=== PATIENT | female | born 1940 | race Caucasian/White ===

== ENCOUNTER 2017-12-31 08:45 | Inpatient (IN) | payer OTHER ==
[~2017-12-31] VITALS: Ht 162.6 cm; Wt 53.1 kg
--- NOTE | 2017-12-31 09:03 | ED NEURO DEFICIT/STROKE ---
History of Present Illness General Chief Complaint: General Adult Stated Complaint: PER PT"I THINK IM HAVING A STROKE, SLURRED WORDS" Source: patient, old records Exam Limitations: no limitations Vital Signs & Intake/Output Vital Signs & Intake/Output Vital Signs Date Time Temp Pulse Resp B/P B/P Pulse O2 O2 Flow FiO2 Mean Ox Delivery Rate 01/01 1514 97.8 82 20 184/90 97 Room Air 01/01 0932 98.4 72 18 180/98 01/01 0800 95 Room Air 01/01 0623 98.4 72 18 180/98 96 Room Air 12/31 2212 98.4 86 16 184/96 98 12/31 1852 84 18 194/92 99 Room Air ED Intake and Output 01/01 0000 12/31 1200 Intake Total 200 Output Total Balance 200 Intake, Oral 200 Patient 116 lb 125 lb Weight Weight Bed scale Reported by Patient Measurement Method Allergies Uncoded Allergies: IV DYE (RASH 11/05/11) Reconcile Medications Amlodipine Besylate 5 MG TABLET 1 TAB PO DAILY HEART (Reported) Buspirone HCl 15 MG TABLET 1 TAB PO BID PRN ANXIETY (Reported) Triage Note: PT TO ER C/C SLURRED SPEECH SINCE SUNDAY, WORSENING RIGHT HAND NUMBNESS SINCE SUNDAY. PT STATES RIGHT HAND ALWAYS "A LITTLE TINGLY". PT BP 215/97, TOOK NORVASC PRESCRIBED THIS AM. DENIES HEADACHE OR BLURRED VISION. AOX3 Triage Nurses Notes Reviewed? yes HPI: Pt presents for evaluation of possible stroke. symptoms began on sunday. Past History Travel History Traveled to [place] past 21 day No Medical History Any Pertinent Medical History? see below for history Cardiovascular: hypertension Psychiatric: anxiety Surgical History Surgical History: non-contributory Psychosocial History What is your primary language Azeri Tobacco Use: Never used Family History Hx Contributory? No Review of Systems Review of Systems Constitutional: Reports: no symptoms. EENTM: Reports: no symptoms. Respiratory: Reports: no symptoms. Cardiovascular: Reports: no symptoms. GI: Reports: no symptoms. Genitourinary: Reports: no symptoms. Musculoskeletal: Reports: no symptoms. Skin: Reports: no symptoms. Neurological/Psychological: Reports: see HPI. Hematologic/Endocrine: Reports: no symptoms. Immunologic/Allergic: Reports: no symptoms. All Other Systems: Reviewed and Negative Physical Exam Physical Exam General Appearance: SEE BELOW Cranial Nerves: SEE BELOW Comments: Gen.: Well-nourished, well-developed, no acute respiratory distress. Head: Normocephalic, atraumatic. Eyes: Normal inspection bilaterally Ears: Normal inspection bilaterally Nose: Normal inspection Throat/mouth : Moist mucosa Neck: Supple, full range of motion, no goiter, equal carotid pulses, no carotid bruits Heart: Regular rate and rhythm, no murmurs rubs or gallops Lungs: Clear to auscultation bilaterally with normal air entry Chest: Nontender Back: Normal range of motion Abdomen: Soft, nontender, nondistended, normal bowel sounds Extremities: Normal range of motion grossly, equal radial pulses, no cyanosis clubbing or edema Neurologic: Cranial nerves grossly intact, speech is slurred but otherwise appropriate Skin: warm and dry Psychiatric: Calm, cooperative, no apparent delusions or hallucinations Core Measures CVA/TIA Diagnosis: Yes Sepsis Present: No Sepsis Focused Exam Completed? No Progress Differential Diagnosis: Lopes's Palsy, electrolyte imbalance, hypoglycemia, seizure disorder, stroke Plan of Care: Orders Procedure Date/time Status CBC WITHOUT DIFFERENTIAL 01/02 06 Active BASIC ELECTROLYTES PLUS BUN&CR 01/02 06 Active Heart Healthy Diet 01/01 B Active Change service to 01/01 0757 Active CBC WITHOUT DIFFERENTIAL 01/01 06 Complete BASIC ELECTROLYTES PLUS BUN&CR 01/01 06 Complete Therapeutic Activities 01/01 UNK Complete PT EVAL LOW COMPLEX 20 MIN 01/01 UNK Complete Neuromuscular Re-ed 01/01 UNK Complete Gait Training 01/[address] NECK ANGIOGRAM 01/01 UNK Active Weight 12/31 2020 Active Teach/Educate 12/31 2020 Active Pain Treatment and Response 12/31 2020 Active Nutritional Intake, Monitor 12/31 2020 Active Isolation 12/31 2020 Active Patient Care Conference 12/31 2020 Active Activity/Ambulation 12/31 2020 Complete ECHOCARDIOGRAM 01/01 1916 Active PT Evaluate & Treat 12/31 1910 Active Pathway - chart 12/31 1910 Active House Staff 12/31 1910 Active Patient Data 12/31 191 Active CASE MANAGEMENT CONSULT 12/31 1910 Active Code Status 12/31 1910 Active Patient Data 12/31 1737 Active Misc Message 12/31 172 Active ED Holding Orders 12/31 172 Active Admit to inpatient 12/31 1720 Active Vital Signs 12/31 172 Active Code Status 12/31 1720 Complete Intake & Output 12/31 0945 Active TSH REFLEX 12/31 0916 Complete LIPID PANEL 12/31 0916 Complete GLYCOSYLATED HGB 12/31 0916 Complete NIH Stroke Scale 12/31 0856 Complete Lab Add-on Test 12/31 UNK Active Occupational Tx Eval & Treat 12/31 UNK Active VTE Mechanical Prophylaxis 12/31 UNK Active Vital Signs 12/31 UNK Complete Telemetry/Inspector Eyeglass Frames 12/31 UNK Active NIH Stroke Scale 12/31 UNK Active Activity/Ambulation 12/31 UNK Active Current Medications Sig/Carlita Start time Last Medication Dose Stop Time Status Admin Amlodipine Besylate 5 MG DAILY 01/01 0900 AC 01/01 (Norvasc) 09 Melatonin 5 MG AT BEDTIME 12/31 2100 AC 12/31 (Melatonin) 2050 Acetaminophen 650 MG Q6P PRN 12/31 1914 AC (Tylenol) Alprazolam 0.25 MG TID PRN 12/31 1914 AC (Xanax) 01/07 1914 Atorvastatin Calcium 40 MG 1700 12/31 1914 AC 12/31 (Lipitor) 2050 Clopidogrel Bisulfate 75 MG DAILY 12/31 1914 AC 01/01 (Plavix) 0932 Laboratory Tests 01/01/18 06: Anion Gap 11, Estimated GFR > 60, BUN/Creatinine Ratio 28.3 H, CBC w Diff NO MAN DIFF REQ, RBC 4.48, MCV 93.6, MCH 31.4 H, MCHC 33.5, RDW 14.0, MPV 9.0, Gran % 54.7, Lymphocytes % 23.8, Monocytes % 19.0 H, Eosinophils % 2.1, Basophils % 0.4, Absolute Granulocytes 3.0, Absolute Lymphocytes 1.3, Absolute Monocytes 1.1 H, Absolute Eosinophils 0.1, Absolute Basophils 0 Diagnostic Imaging: Discussed w/RAD: CT Scan. Radiology Impression: PATIENT: SHANITA APODACA PRESENT AGE: 77 PATIENT ACCOUNT NO: [id number] : 42 LOCATION: [facility] ORDERING PHYSICIAN: Nabil Lopes MD SERVICE DATE: 12/31/17 EXAM TYPE: CAT - CT HEAD WO IV CONTRAST EXAMINATION: CT HEAD WITHOUT CONTRAST CLINICAL INFORMATION: Slurred speech. Weakness. COMPARISON: None. TECHNIQUE: Contiguous axial imaging was performed from the skull base to vertex without intravenous contrast. DLP: 626 mGy-cm. FINDINGS: There is no evidence of acute intracranial hemorrhage or territorial infarction. No abnormal mass effect or midline shift is seen. Mota to white matter differentiation is well preserved. No extra-axial fluid collections are identified. No hydrocephalus. No significant volume loss. Patchy periventricular and deep white matter hypoattenuation is consistent with mild small vessel ischemic changes. Likely small chronic infarcts in the left arango radiata frontal lobe and right parietal centrum semiovale. The osseous structures and soft tissues are normal. The mastoid air cells and visualized portions of the paranasal sinuses are well aerated. IMPRESSION: No acute intracranial pathology. Mild small vessel ischemic changes. DICTATED BY: Frank Elkins MD DATE/TIME DICTATED:12/31/171027 ART COORDINATOR: CHEY DATE/TIME TRANSCRIBED:12/31/171027 CONFIDENTIAL, DO NOT COPY WITHOUT APPROPRIATE AUTHORIZATION. <Electronically signed in Other Vendor System> SIGNED BY: Severo VALDEZ,Frank 12/31/17 1036 Initial ED EKG: SEE BELOW Comments: Patient's EKG reveals a sinus rhythm with a rate of 95 and a PVC. She has diffuse ST depressions likely due to LVH with strain pattern. There is no old EKG for comparison. 12/31/2017 9:39:01 AM SHANITA APPEARS COMFORTABLE AT THIS TIME AND HER BLOOD PRESSURE IS IMPROVING SPONTANEOUSLY (she did take her antihypertensive and aspirin this morning). I have asked the refinery operator crude unit to obtain an old EKG from Dr. Louie. 12/31/2017 10:12:19 AM per refinery operator crude unit, no old EKGs available from primary care doctor. 12/31/2017 10:59:10 AM patient's case discussed with Dr. Louie who requests an MRI scan and neurology consultation. 12/31/2017 1:58:58 PM according to radiologist SMALL ARANGO RADIATA INFARCT WITH POSSIBLE BLOOD SUGGESTS REPEAT NON CON CT. 12/31/2017 2:18:56 PM I have notified Rylee of the MRI report and the need for a second CT scan. She agrees. She is clinically stable and offers no complaints currently. Departure Departure Disposition: STILL A PATIENT Condition: Stable Clinical Impression Primary Impression: CVA (cerebral vascular accident) Qualifiers: CVA mechanism: unspecified Qualified Code: I63.9 - Cerebral infarction, unspecified Referrals: Tima Louie MD (PCP/Family) Departure Forms: Customer Survey General Discharge Information Admission Note Spoke With: Tima Louie MD Documentation of Exam: Documentation of any treatments & extenuating circumstances including Concerns Regarding Discharge (functional status, medication knowledge or non-compliance, living conditions, etc.) that warrant an admission rather than observation: Patient clinical presentation is consistent with a CVA. Her MRI scan confirms an acute infarct. Patient is currently taking aspirin therapy she is therefore failed aspirin therapy. I feel she requires hospitalization for an expedited investigation of potential reversible causes of her CVA including cardiac dysrhythmia and carotid artery disease. The patient is suffering from right- sided weakness placing her at high risk of falling and I therefore feel she is not a good candidate for outpatient management. She could potentially return in worse clinical condition. During her hospitalization, I feel the patient should have an echocardiogram and carotid Doppler studies as well as cardiology and neurology consultations. Her medical management should be optimized. Physical therapy consultation to be considered given the patient's excited weakness. I feel she'll require a multiple day hospitalization.
[2017-12-31 09:27] LABS: ABSOLUTE BASOPHIL COUNT 0.1 /CUMM (0.0-0.2); ABSOLUTE EOSINOPHIL COUNT 0 /CUMM (0.0-0.7); ABSOLUTE GRANULOCYTE CT 7.6 /CUMM (1.4-6.5); ABSOLUTE LYMPH COUNT 0.8 /CUMM (1.2-3.4); ABSOLUTE MONOCYTE COUNT 0.8 /CUMM (0.10-0.60); BASOPHIL % 0.8 % (0.0-2.0); EOSINOPHIL % 0.4 % (0-5); GRANULOCYTE % 81.2 % (42.2-75.2); HEMATOCRIT 46.4 % (37-47); MEAN CORPUSCULAR HGB 31.7 PG (27.0-31.0); MEAN CORPUSCULAR HGB CONC 33.8 G/DL (33.0-37.0); MEAN CORPUSCULAR VOLUME 93.6 FL (81.0-99.0); MEAN PLATELET VOLUME 8.6 FL (7.4-10.4); PLATELET COUNT 227 /CUMM (130-400); RBC DISTRIBUTION WIDTH 13.6 % (11.5-14.5); RED BLOOD CELL CT 4.96 /CUMM (4.20-5.40); WHITE BLOOD CELL COUNT 9.4 /CUMM (4.8-10.8)
[2017-12-31 09:37] LABS: PT 11.5 SEC (9.4-12.5); PTT 29 SEC (25-37)
[2017-12-31] MEDS ORDERED: BUSPIRONE HCL15 M1 PO (10:08)
[2017-12-31] MEDS ORDERED: AMLODIPINE BESYL5 M1 PO (10:08)
--- NOTE | 2017-12-31 10:36 | CT SCAN REPORT ---
EXAMINATION: CT HEAD WITHOUT CONTRAST CLINICAL INFORMATION: Slurred speech. Weakness. COMPARISON: None. TECHNIQUE: Contiguous axial imaging was performed from the skull base to vertex without intravenous contrast. DLP: 626 mGy-cm. FINDINGS: There is no evidence of acute intracranial hemorrhage or territorial infarction. No abnormal mass effect or midline shift is seen. Mota to white matter differentiation is well preserved. No extra-axial fluid collections are identified. No hydrocephalus. No significant volume loss. Patchy periventricular and deep white matter hypoattenuation is consistent with mild small vessel ischemic changes. Likely small chronic infarcts in the left arango radiata frontal lobe and right parietal centrum semiovale. The osseous structures and soft tissues are normal. The mastoid air cells and visualized portions of the paranasal sinuses are well aerated. IMPRESSION: No acute intracranial pathology. Mild small vessel ischemic changes.
--- NOTE | 2017-12-31 14:04 | MRI REPORT ---
MR BRAIN WITHOUT CONTRAST CLINICAL INFORMATION: Right-sided weakness and slurred speech. Negative head CT. COMPARISON: Head CT performed earlier the same day. TECHNIQUE: MRI of the brain without contrast was obtained using routine sequences. FINDINGS: There is a small acute infarct within the left arango radiata extending into the posterior left putamen in the left MCA territory. There is susceptibility artifact in near these areas with no correlate on the prior CT study. This may reflect mineralization in these areas no a follow-up noncontrast head CT would be helpful in excluding any developing hemorrhage. There are mild T2 signal changes within the supratentorial white matter and central og, most likely mild chronic microangiopathy. Chronic lacunar infarcts within the cerebellar hemispheres bilaterally. There is no hydrocephalus, extra-axial surface collection, or herniation. The major flow voids at the skull base are preserved. The midline structures are normal. The cerebellar tonsils are normally positioned. The craniocervical junction is normal. Osseous marrow signal intensity is homogenous. The visualized soft tissues are unremarkable. IMPRESSION: - There is a small acute infarct within the left arango radiata extending into the posterior left putamen in the left MCA territory. There is susceptibility artifact in near these areas with no evidence of acute hemorrhage on the prior CT study. The areas of susceptibility artifact may reflect mineralization, however, a follow-up noncontrast head CT would be helpful in excluding any developing hemorrhage. - Mild chronic microangiopathy. Critical results discussed with Dr. Lopes at 2:00 PM on 12/31/2017.
--- NOTE | 2017-12-31 15:36 | CT SCAN REPORT ---
EXAMINATION: CT HEAD WITHOUT CONTRAST CLINICAL INFORMATION: Hemorrhagic CVA. COMPARISON: MRI brain performed from the 1:[address] brain earlier at 10:58 AM today. TECHNIQUE: Contiguous axial imaging was performed from the skull base to vertex without intravenous administration of contrast. DLP: 614. mGy-cm FINDINGS: There is a subtle hypodensity in the left centrum semiovale on image 30, series 2 without any corresponding hemorrhagic conversion or mass effect. No additional areas of hypodensity seen. No acute intra-axial, extra-axial bleed, masses or midline shift seen. The lateral ventricles are symmetrical in size without ventriculomegaly. The hodges to white matter differentiation is preserved. Bone windows reveal no calvarial abnormality. Bilateral paranasal sinuses and mastoid air cells are normal. IMPRESSION: Small lacunar infarction left centrum semiovale with no hemorrhagic conversion seen on the present exam. No acute bleed seen. No new areas of infarction noted.
--- NOTE | 2017-12-31 17:50 | History & Physical ---
[facility]12: General Information and HPI MD Statement: I have seen and personally examined TANVI APODACA and documented this H&P. The patient is a 77 year old F who presented with a patient stated chief complaint of right arm pain and neck fullness. Source of Information: patient Exam Limitations: no limitations History of Present Illness: 77-year-old female with past medical history of hypertension, anxiety came to [facility] with complaints of slurring of speech and right weakness for the past 3 days. According to the patient she was in usual state of health until 3 days ago, following which she started having slurring of speech with deviation of her mouth to the left side. She tried to write, but unable to do. Patient had right arm tingling and numbness more evident on the right thumb and ring finger. She also had right hand weakness. She did not seek medical attention. The next day she continued having slurring of speech and felt weak on the right side. She went to [place] and came back the next day. She also complains of left leg dragging during those episodes. Patient also had floaters with no blurring of vision 2 days prior to this. She denies chest pain, headache, left- sided weakness, altered sensation, palpitation, fall, loss of consciousness, trauma. Patient never had these kind of symptoms in the past. At baseline patient is an anxious. Patient blood pressure is usually around 180 systolic for many years. Patient is on amlodipine 5 mg for the same. Allergies/Medications Allergies: Uncoded Allergies: IV DYE (RASH 11/05/11) Home Med list Amlodipine Besylate 5 MG TABLET 1 TAB PO DAILY HEART (Reported) Buspirone HCl 15 MG TABLET 1 TAB PO BID PRN ANXIETY (Reported) Compliance With Home Meds: GOOD Past History Travel History Traveled to [place] past 21 day No Medical History Cardiovascular: hypertension Respiratory: NONE Gastrointestinal: NONE Renal: NONE Musculoskeletal: NONE Psychiatric: anxiety Endocrine: NONE Surgical History Surgical History: cholecystectomy, hysterectomy Past Family/Social History Family History Relations & Conditions if any grand nother (Stroke). Psychosocial History Where do you live? Home Who Do You Live With? spouse Services at Home: None Primary Language: Nepalese Smoking Status: Never Smoked ETOH Use: occasional use Functional Ability ADLs Independent: dressing, eating, toileting, bathing. Ambulation: independent IADLs Independent: shopping, housework, finances, food prep, telephone, transportation , medication admin. Review of Systems Review of Systems Constitutional: Reports: no symptoms. Cardiovascular: Reports: no symptoms. Respiratory: Reports: no symptoms. GI: Reports: no symptoms. Genitourinary: Reports: no symptoms. Musculoskeletal: Reports: no symptoms. Skin: Reports: no symptoms. Neurological/Psychological: Reports: numbness, tingling. Exam & Diagnostic Data Last 24 Hrs of Vital Signs/I&O Vital Signs Date Time Temp Pulse Resp B/P B/P Pulse O2 O2 Flow FiO2 Mean Ox Delivery Rate 12/31 1641 87 18 204/100 99 Room Air 12/31 1429 98.3 99 20 180/80 96 Room Air 12/31 1300 97 20 180/80 97 Room Air 12/31 1132 98.9 80 20 180/80 95 Room Air 12/31 1007 98.1 89 20 180/80 96 Room Air 12/31 0905 180/96 12/31 0855 98.1 104 18 215/97 96 Room Air Intake & Output 12/31 1600 12/31 0800 12/31 0000 Intake Total Output Total Balance Patient 125 lb Weight Weight Reported by Patient Measurement Method Physical Exam General Appearance Alert, Oriented X3, Cooperative, No Acute Distress HEENT PERRLA, EOMI, Mucous Membr. moist/pink Neck No JVD, No thryomegaly, +2 Carotid Pulse wo Bruit Cardiovascular Regular Rate, Normal S1, Normal S2, No Murmurs Lungs Clear to Auscultation Abdomen Normal Bowel Sounds, Soft, No Tenderness, No Hepatospenomegaly Neurological Normal Speech, Strength at 5/5 X4 Ext, Normal Tone, Sensation Intact, Cranial Nerves 3-12 NL, Reflexes 2+ Extremities No Cyanosis, No Edema, Normal Pulses Last 24 Hrs of Labs/Bobby: Laboratory Tests 12/31/17 0916: Anion Gap 13, Estimated GFR > 60, BUN/Creatinine Ratio 20.0, Glucose 116 H, Hemoglobin A1c Pending, Calcium 9.6, Total Bilirubin 0.6, AST 30, ALT 36, Alkaline Phosphatase 95, Total Protein 7.4, Albumin 4.1, Globulin 3.3, Albumin/ Globulin Ratio 1.2, Triglycerides 117, Cholesterol 199, LDL Cholesterol, Calc 86 , HDL Cholesterol 90 H, Cholesterol/HDL Ratio 2, TSH &T3 &Free T4 Intrp Pending , PT 11.5, INR 1.05, APTT 29, CBC w Diff NO MAN DIFF REQ, RBC 4.96, MCV 93.6, MCH 31.7 H, MCHC 33.8, RDW 13.6, MPV 8.6, Gran % 81.2 H, Lymphocytes % 8.6 L, Monocytes % 9.0, Eosinophils % 0.4, Basophils % 0.8, Absolute Granulocytes 7.6 H, Absolute Lymphocytes 0.8 L, Absolute Monocytes 0.8 H, Absolute Eosinophils 0, Absolute Basophils 0.1 Diagnostic Data EKG Results Left atrial abnormality, left ventricular hypertrophy with PVC Assessment/Plan Assessment: 77-year-old female with past medical history of hypertension, anxiety came to [place] [facility] with complaints of slurring of speech and right weakness for the past 3 days. Vital signs Temperature 98.3, pulse rate 99, blood pressure 180/80, pulse oximeter 96 at room air Admission labs WBC 9.4, platelet 227, hemoglobin 15.7, sodium 141, glucose 116, potassium 3.5, BUN 14 Head MRI There is a small acute infarct within the left arango radiata extending into the posterior left putamen in the left MCA territory. There is susceptibility artifact in near these areas with no evidence of acute hemorrhage on the prior CT study. The areas of susceptibility artifact may reflect mineralization, however, a follow-up noncontrast head CT would be helpful in excluding any developing hemorrhage. Mild chronic microangiopathy. Head CT Small lacunar infarction left centrum semiovale with no hemorrhagic conversion seen on the present exam. No acute bleed seen. No new areas of infarction noted. Assessment and plan 1. Stroke 2. Hypertension 3. Anxiety * Admitted to telemetry. Frequent neuro checks. * Vitals every shift. pt passed swallow eval. * Neurology consult in a.m. US Neck to r/o any stenosis. * Since there is high risk for conversion to hemorrhagic stroke, we will withhold anticoagulation as per neurology. * Patient was on aspirin. Since she failed on aspirin and had a stroke at this time we will give aspirin along with Plavix 75 mg daily. * Continue atorvastatin 40 mg. * Hypertension-amlodipine 5 mg daily. We have to be careful in decreasing her blood pressure not more than 15% in 24 hours. As per neurology her blood pressure needs to be reduced over the months. * Anxiety-on Xanax 0.25 mg 3 times daily * Code-full code * Diet-heart healthy diet Core Measures/Misc (03/25) Acute Coronary Syndrome ACS Diagnosis: No Congestive Heart Failure Congestive Heart Failure Diagnosis No Cerebrovascular Accident CVA/TIA Diagnosis: Yes NIH Stroke Scale: Total 0 Date Last Known Well: 12/27/17 Time Last Known Well: 1030 Symptom Start Date: 12/28/17 Symptom Start Time: 1030 Swallow Evaluation Pass Current/Past Hx AFib/AFlutter No No Anticoagulant d/t Medical Contraindication VTE (View Protocol) VTE Risk Factors Age>40 No Mechanical VTE Prophylaxis d/t Other No VTE Pharm Prophylaxis d/t Other Sepsis (View protocol) Sepsis Present: No If YES complete Sepsis Event Note If YES complete Sepsis Event Note Smith VALDEZ,[facility] 12/31/17 2017: Core Measures/Misc (03/25) Sepsis (View protocol) If YES complete Sepsis Event Note If YES complete Sepsis Event Note Resident Review Statement Resident Statement: examined this patient, discussed with process engineering intern, agreed with process engineering intern, discussed with family, reviewed EMR data (avail), discussed with nursing Other Findings: Tanvi is a 77 year old lady with past medical history significant for hypertension, and excited T who presented to ED with chief complain of right sided weakness and slurred speech since Sunday. Patient has persistent elevated high blood pressure with systolic in 180s, denied any headache, blurry vision. At time of interview patient had slurred speech resolved, normal motor and sensory exam on the bilateral upper and lower extremity. Patient denied any history of fall. Problem list #Acute infarct within the left arango radiata extending into the posterior left putamen in the left MCA territory (symptoms started on Sunday, out side the TPA period). #Hypertension persistently in systolic 180 #Significant anxiety Plan Admit to telemetry floor Vital Q shift NIH scale every [address] Yadav neurologist recommendation for Plavix, statin Echocardiogram Ultrasound carotid Repeat lipid profile TSH with reflex T4, T3 Obtain cardiology recommendation for persistent hypertension and LVH in EKG Continue amlodipine 5 mg for hypertension, patient used to be at 180 systolic, blood pressure shouldn't be dropped quickly Xanax for anxiety 0.25 mg 3 times a day when necessary Follow up neurology recommendation Patient passed bedside swallow eval and had lunch in ED, continue diet heart healthy PT, OT DVT prophylaxis Alps per neurology recommendation, OOB Code full Plan Tima Louie MD 01/01/18 0928: Assessment/Plan As Ranked By This Provider Problem List: 1. Stroke Core Measures/Misc (03/25) Sepsis (View protocol) If YES complete Sepsis Event Note If YES complete Sepsis Event Note
--- NOTE | 2017-12-31 17:57 | Admission Certification ---
Admission Certification Certification Statement - As attending physician, I certify that at the time of - admission, based on clinical presentation, severity of - symptoms, need for further diagnostic testing and - therapeutic interventions, and risk of adverse outcomes - without in-hospital treatment, in my clinical assessment, - this patient requires an acute hospital stay for a minimum - of two nights or longer. I have also considered psychsocial - factors such as support system, advanced age, financial - issues, cognitive issues, and failed out-patient treatments, - past re-admission history, safety of patient, and lack of - compliance as applicable. Specific rationale supporting this admission is: cva AND HYPERTENSION.
--- NOTE | 2017-12-31 18:06 | PN- Att Addend ---
Attending Addendum Attending Brief Note 77 year old female with history of hypertension complaint with medications anxious at times since sunday having difficulty at times expressing her self and some slight weakness right hand decided to come to the ER today evaluation started had CT of the head negative but later had a MRI of the head that showed a small acute infarct within the left arango radiata extending into the posterior left putamen in the left MCA territory. a second CT of the head showed no acute bleeding. patient will be observed have a neurology consult neck US statins etc, and monitor BP too. Laboratory Tests 12/31/17 0916: Anion Gap 13, Estimated GFR > 60, BUN/Creatinine Ratio 20.0, Glucose 116 H, Calcium 9.6, Total Bilirubin 0.6, AST 30, ALT 36, Alkaline Phosphatase 95, Total Protein 7.4, Albumin 4.1, Globulin 3.3, Albumin/Globulin Ratio 1.2, PT 11.5, INR 1.05, APTT 29, CBC w Diff NO MAN DIFF REQ, RBC 4.96, MCV 93.6, MCH 31.7 H, MCHC 33.8, RDW 13.6, MPV 8.6, Gran % 81.2 H, Lymphocytes % 8.6 L, Monocytes % 9.0, Eosinophils % 0.4, Basophils % 0.8, Absolute Granulocytes 7.6 H, Absolute Lymphocytes 0.8 L, Absolute Monocytes 0.8 H, Absolute Eosinophils 0, Absolute Basophils 0.1 Vital Signs Date Time Temp Pulse Resp B/P B/P Pulse O2 O2 Flow FiO2 Mean Ox Delivery Rate 12/31 1641 87 18 204/100 99 Room Air 12/31 1429 98.3 99 20 180/80 96 Room Air 12/31 1300 97 20 180/80 97 Room Air 12/31 1132 98.9 80 20 180/80 95 Room Air 12/31 1007 98.1 89 20 180/ 96 Room Air Intake & Output 12/31 1600 Intake Total Output Total Balance Patient 125 lb Weight Weight Reported by Patient Measurement Method
--- NOTE | 2017-12-31 22:07 | ULTRASOUND REPORT ---
US DUPLEX CAROTID AND VERTEBRAL CLINICAL INFORMATION: Right-sided weakness and slurred speech. COMPARISON: None available. TECHNIQUE: Real-time ultrasound and Doppler techniques (integrating B-mode 2D vascular images, Doppler spectral analysis and color flow Doppler imaging) were utilized to interrogate the extracranial carotid and vertebral arteries bilaterally. The degree of stenosis determined by criteria similar to NASCET. FINDINGS: Right common carotid artery peak systolic velocity is 95 cm/s with maximal end-diastolic velocity of 18 cm/s. Right internal carotid artery peak systolic velocity ranges between 56 and 81 cm/s with maximal end-diastolic velocity of 23 cm/s. Right external carotid artery peak systolic velocity is 91 cm/s. There is antegrade flow within the right vertebral artery. Left common carotid artery peak systolic velocity is 102 cm/s with maximal end-diastolic velocity of 15 cm/s. Left internal carotid artery peak systolic velocity ranges between 91 and 132 cm/s with maximal end-diastolic velocity of 37 cm/s. The 132 cm/s measurement was obtained along a tortuous course of the left ICA and is most likely overestimated. There is antegrade flow within the left vertebral artery. There is mild atherosclerotic plaque at the left carotid bifurcation. IMPRESSION: Distal left internal carotid artery peak systolic velocity is 132 cm/s, likely overestimated given that the vessel is tortuous in this location. In light of the patient's symptoms, a CTA of the neck could be obtained to assess for any significant stenosis. No significant stenosis involving the right internal carotid artery.
[2017-12-31 22:12] VITALS: BP 184/96
[2018-01-01 06:23] VITALS: BP 180/98
--- NOTE | 2018-01-01 06:39 | PN- Housestaff ---
Subjective Follow-up For: Stroke Complaints: no complaints Tele-Events Since Last Visit: Normal sinus rhythm with a heart rate of 80 Subjective: Patient seen and examined at bedside no overnight events. Complains of right hand tightness and weakness. Denies chest pain, palpitation, abdominal pain, nausea, vomiting, fall. Review of Systems Constitutional: Reports: no symptoms. Objective Last 24 Hrs of Vital Signs/I&O Vital Signs Date Time Temp Pulse Resp B/P B/P Pulse O2 O2 Flow FiO2 Mean Ox Delivery Rate 01/01 1514 97.8 82 20 184/90 97 Room Air 01/01 0932 98.4 72 18 180/98 01/01 0800 95 Room Air 01/01 0623 98.4 72 18 180/98 96 Room Air 12/31 2212 98.4 86 16 184/96 98 12/31 1852 84 18 194/92 99 Room Air 12/31 1641 87 18 204/100 99 Room Air Intake & Output 01/01 1600 01/01 0800 01/01 0000 Intake Total 720 200 Output Total Balance 720 200 Intake, Oral 720 200 Patient 116 lb Weight Weight Bed scale Measurement Method Physical Exam General Appearance: Alert, Oriented X3, Cooperative, No Acute Distress Cardiovascular: Regular Rate, Normal S1, Normal S2, No Murmurs Lungs: Normal Air Movement Abdomen: Soft, No Tenderness, No Hepatospenomegaly Neurological: Normal Speech, Normal Tone, Sensation Intact, Cranial Nerves 3-12 NL, left arm 5/5,rt arm 4/5 Extremities: No Cyanosis, No Edema, Normal Pulses Current Medications: Current Medications Sig/Carlita Start time Last Medication Dose Route Stop Time Status Admin Acetaminophen 650 MG Q6P PRN 12/31 1914 AC PO Alprazolam 0.25 MG TID PRN 12/31 1914 AC PO 01/07 1914 Amlodipine Besylate 5 MG DAILY 01/01 0900 AC 01/01 PO 0932 Atorvastatin Calcium 40 MG 1700 12/31 1914 AC 12/31 PO 2050 Clopidogrel Bisulfate 75 MG DAILY 12/31 1914 AC 01/01 PO 0932 Melatonin 5 MG AT BEDTIME 12/31 2100 AC 12/31 PO 2050 Patient Medication 1 ED ONE ONE 01/01 1530 [place] [facility] ED 01/01 1531 Last 24 Hrs of Lab/Bobby Results Last 24 Hrs of Labs/Mics: Laboratory Tests 01/01/18 0605: Anion Gap 11, Estimated GFR > 60, BUN/Creatinine Ratio 28.3 H, CBC w Diff NO MAN DIFF REQ, RBC 4.48, MCV 93.6, MCH 31.4 H, MCHC 33.5, RDW 14.0, MPV 9.0, Gran % 54.7, Lymphocytes % 23.8, Monocytes % 19.0 H, Eosinophils % 2.1, Basophils % 0.4, Absolute Granulocytes 3.0, Absolute Lymphocytes 1.3, Absolute Monocytes 1.1 H, Absolute Eosinophils 0.1, Absolute Basophils 0 Assessment/Plan Assessment: 77-year-old female with past medical history of hypertension, anxiety came to [place] [facility] with complaints of slurring of speech and right weakness for the past 3 days. Assessment and plan 1. Stroke 2. Hypertension 3. Anxiety * Continue neuro check. Awaiting neurology consult. * Patient had ultrasound of the neck which suggested increased fluid in the left carotid artery. We will do CTA neck. * Continue aspirin, Plavix, atorvastatin. * Hypertension patient has chronic systolic hypertension. We will continue amlodipine 5 mg.We have to be careful in decreasing her blood pressure not more than 15% in 24 hours. As per neurology her blood pressure needs to be reduced over the months. * Anxiety-on Xanax 0.25 mg 3 times daily * Code-full code * Diet-heart healthy diet Problem List: 1. Stroke Pain Ratin Pain Location: none Pain Goal: Remain pain free Pain Plan: tylenol Tomorrow's Labs & Rationales: cbc,bep
[2018-01-01 07:44] LABS: ABSOLUTE BASOPHIL COUNT 0 /CUMM (0.0-0.2); ABSOLUTE EOSINOPHIL COUNT 0.1 /CUMM (0.0-0.7); ABSOLUTE LYMPH COUNT 1.3 /CUMM (1.2-3.4); ABSOLUTE MONOCYTE COUNT 1.1 /CUMM (0.10-0.60); BASOPHIL % 0.4 % (0.0-2.0); EOSINOPHIL % 2.1 % (0-5); GRANULOCYTE % 54.7 % (42.2-75.2); HEMATOCRIT 41.9 % (37-47); MEAN CORPUSCULAR HGB 31.4 PG (27.0-31.0); MEAN CORPUSCULAR HGB CONC 33.5 G/DL (33.0-37.0); MEAN CORPUSCULAR VOLUME 93.6 FL (81.0-99.0); PLATELET COUNT 220 /CUMM (130-400); RED BLOOD CELL CT 4.48 /CUMM (4.20-5.40); WHITE BLOOD CELL COUNT 5.6 /CUMM (4.8-10.8)
--- NOTE | 2018-01-01 10:00 | PN- Att Addend ---
Attending Addendum Attending Brief Note Patient sitting in the chair, at the bed site. was seen by PT and OT neurologist will be in to check patient patient on Plavix, BP still a little up but better than yesterday, no new changes on physical. continue observation today if stable home in AM. 24 TOTALS 01/01 0000 12/31 0000 Intake Total 200 Output Total Balance 200 Intake, Oral 200 Patient 116 lb Weight Weight Bed scale Measurement Method Current Medications Sig/Carlita Start time Last Medication Dose Route Stop Time Status Admin Acetaminophen 650 MG Q6P PRN 12/31 1914 AC PO Alprazolam 0.25 MG TID PRN 12/31 1914 AC PO 01/07 1914 Amlodipine Besylate 5 MG DAILY 01/01 09 AC 01/01 PO 09 Atorvastatin Calcium 40 MG 1700 12/31 1914 AC 12/31 PO 2050 Clopidogrel Bisulfate 75 MG DAILY 12/31 1914 AC 01/01 PO 0932 Melatonin 5 MG AT BEDTIME 12/31 2100 AC 12/31 PO 2050 Laboratory Tests 01/01/18 06: Anion Gap 11, Estimated GFR > 60, BUN/Creatinine Ratio 28.3 H, CBC w Diff NO MAN DIFF REQ, RBC 4.48, MCV 93.6, MCH 31.4 H, MCHC 33.5, RDW 14.0, MPV 9.0, Gran % 54.7, Lymphocytes % 23.8, Monocytes % 19.0 H, Eosinophils % 2.1, Basophils % 0.4, Absolute Granulocytes 3.0, Absolute Lymphocytes 1.3, Absolute Monocytes 1.1 H, Absolute Eosinophils 0.1, Absolute Basophils 0 12/31/17 09: Anion Gap 13, Estimated GFR > 60, BUN/Creatinine Ratio 20.0, Glucose 116 H, Hemoglobin A1c 5.1, Calcium 9.6, Total Bilirubin 0.6, AST 30, ALT 36, Alkaline Phosphatase 95, Total Protein 7.4, Albumin 4.1, Globulin 3.3, Albumin/Globulin Ratio 1.2, Triglycerides 117, Cholesterol 199, LDL Cholesterol, Calc 86, HDL Cholesterol 90 H, Cholesterol/HDL Ratio 2, TSH &T3 &Free T4 Intrp 0.897, PT 11.5, INR 1.05, APTT 29, CBC w Diff NO MAN DIFF REQ, RBC 4.96, MCV 93.6, MCH 31.7 H, MCHC 33.8, RDW 13.6, MPV 8.6, Gran % 81.2 H, Lymphocytes % 8.6 L, Monocytes % 9.0, Eosinophils % 0.4, Basophils % 0.8, Absolute Granulocytes 7.6 H, Absolute Lymphocytes 0.8 L, Absolute Monocytes 0.8 H, Absolute Eosinophils 0, Absolute Basophils 0.1 Vital Signs Date Time Temp Pulse Resp B/P B/P Pulse O2 O2 Flow FiO2 Mean Ox Delivery Rate 01/01 0932 98.4 72 18 180/98 01/01 0623 98.4 72 18 180/98 96 Room Air 12/31 2212 98.4 86 16 184/96 98 12/31 1852 84 18 194/92 99 Room Air 12/31 1641 87 18 204/100 99 Room Air 12/31 1429 98.3 99 20 180/80 96 Room Air 12/31 1300 97 20 180/80 97 Room Air 12/31 1132 98.9 80 20 180/80 95 Room Air 12/31 1007 98.1 89 20 180/80 96 Room Air
[2018-01-01 15:14] VITALS: BP 184/90
--- NOTE | 2018-01-01 18:20 | Event Note ---
Event Note Event Note: S patient is scheduled for CTA and has a IV contrast allergy B patient is a 77-year-old female who is being currently evaluated for stroke after presenting tingling and numbness in right hand along with slurring of speech 3 days ago. She underwent an MRI which was positive for small acute infarct within the left arango radiata extending into the posterior left putamen in the left MCA territory. No hemorrhagic conversion was seen on CT. carotid ultrasound was positive for Distal left internal carotid artery peak systolic velocity being 132 cm/s, likely overestimated given that the vessel is tortuous in this location. Hence correlation with CTA was suggested AR I went in and evaluated the patient. Patient told me that 20 years ago she had IV contrast (gadolinium or iodine) she does not remember whether CT scan or MRI. She got hives all over her body and had extensive itching. There was no shortness of breath or trouble breathing at that episode. Patient did not seek medical attention at that point. There is no shellfish allergy Initially patient was resistant to getting the CTA done. However patient was explained the importance of the test and management as per test results. Her family was also at the bedside. I have personally explained the patient's risk of contrast allergy involved including trouble breathing and anaphylaxis. I also explained our strategies including steroids and antihistamines to prevent the reaction of hives. Risks versus benefits patient has agreed to proceed with the CTA after discussion with her and children. The attending Dr. Louie was contacted over the phone who was advised to proceed with premedication and go ahead with the CTA -50 mg IV Benadryl -40 mg IV methylprednisone These interventions have been ordered. EpiPen has also been ordered. Patient will be premedicated 1 hour before the scan. The scan is planned at 8 PM. -Patient will require close monitoring -We will sign out to night team -Patient should go down for the scan with the EpiPen
--- NOTE | 2018-01-01 18:25 | Cons- Neurology ---
General Information and HPI Consulting Request Date of Consult: 01/01/18 Requested By: Tima Louie MD Reason for Consult: Stroke Source of Information: patient Exam Limitations: no limitations History of Present Illness: 77-year-old right-handed woman who states that night into Sunday morning () She developed right-sided weakness and slurred speech. Nonetheless, she wants to attend a relative's graduation in [place]. She states that her drove there and back. When she returned she sought medical attention and was admitted. Speech remains slurred. She denies swallowing difficulties. She has difficulty using her right hand for fine motor tasks such as writing. She states she has been ambulating without difficulties and without an assistive device. She denies headache dizziness or visual changes. She reports a history of hypertension since her 20s. She admits to episodic antihypertensive medication nonadherence. There is a history of stroke in her maternal grandmother. She is a lifelong nonsmoker. Allergies/Medications Allergies: Uncoded Allergies: IV DYE (Mild, HIVES 01/01/18) PATIENT DOES NOT REMEMBER WHICH CONTRAST CAUSE HER REACTION Home Med List: Amlodipine Besylate 5 MG TABLET 1 TAB PO DAILY HEART (Reported) Buspirone HCl 15 MG TABLET 1 TAB PO BID PRN ANXIETY (Reported) Current Medications: Current Medications Sig/Carlita Start time Last Medication Dose Route Stop Time Status Admin Acetaminophen 650 MG Q6P PRN 12/31 1914 AC PO Alprazolam 0.25 MG TID PRN 12/31 1914 AC PO 01/07 1914 Amlodipine Besylate 5 MG DAILY 01/01 0900 AC 01/01 PO 0932 Atorvastatin Calcium 40 MG 1700 12/31 191 AC 12/31 PO 2050 Clopidogrel Bisulfate 75 MG DAILY 12/31 191 AC 01/01 PO 0932 Melatonin 5 MG AT BEDTIME 12/31 2100 AC 12/31 PO 2050 Patient Medication 1 ED ONE ONE 01/01 1530 [facility] ED 01/01 1531 Review of Systems Review of Systems: REVIEW OF SYSTEMS: (-) = negative / normal blank = not discussed Neurologic: see HPI Eyes: (-) ENT: (-) Constitutional: (-) CV: (-) Respiratory: (-) /Renal: (-) Musculoskeletal: (-) Skin: (-) Psychiatric: (-) Heme: (-) GI: (-) Allergy/Immune: (-) Endocrine: (-) Other: (-) Past History Travel History Traveled to [place] past 21 day No Medical History Blood Transfusion Hx: No Cardiovascular: hypertension Respiratory: NONE Gastrointestinal: NONE Renal: NONE Musculoskeletal: NONE Psychiatric: anxiety Endocrine: NONE Surgical History Surgical History: non-contributory Family History Relations & Conditions If Any: grand nother (Stroke). Psychosocial History Where Do You Live? Home Who Do You Live With? spouse Services at Home: None Primary Language: Albanian Smoking Status: Never Smoked ETOH Use: occasional use Functional Ability ADLs Independent: dressing, eating, toileting, bathing. Ambulation: independent IADLs Independent: shopping, housework, finances, food prep, telephone, transportation , medication admin. Exam & Diagnostic Data Vital Signs and I&O Vital Signs Date Time Temp Pulse Resp B/P B/P Pulse O2 O2 Flow FiO2 Mean Ox Delivery Rate 01/01 1630 Room Air 01/01 1514 97.8 82 20 184/90 97 Room Air 01/01 0932 98.4 72 18 180/98 01/01 0800 95 Room Air 01/01 0623 98.4 72 18 180/98 96 Room Air 12/31 2212 98.4 86 16 184/96 98 12/31 1852 84 18 194/92 99 Room Air Intake & Output 01/01 1600 01/01 0800 01/01 0000 Intake Total 720 200 Output Total Balance 720 200 Intake, Oral 720 200 Patient 116 lb Weight Weight Bed scale Measurement Method Physical Exam: PHYSICAL EXAMINATION: nl = normal NT or blank = not tested GENERAL Appearance: nl Head: nl Eyes: nl ENT: nl Neck: nl Carotids: nl Lungs: nl Heart: nl Extremities: nl NEUROLOGIC MENTAL STATUS Level of consciousness: nl Orientation: nl Attention / Concentration: nl Memory: nl Fund of Knowledge: nl Speech / Language: Fluent, with intact comprehension and mild to moderate dysarthria NEUROLOGIC CRANIAL NERVES I: Olfaction: NT II: Optic nerves: nl Visual gallego: nl III: Pupils: nl Levator palpebrae: nl III, IV, : Ocular alignment: nl Extraocular motility: nl Pursuits/ saccades: nl V: Facial sensation: nl Masseter/Pterygoids: nl VII: Facial Motor: Mild right lower facial weakness VIII: Hearing (finger rub): nl IX, X: Uvula and palate: nl XI: SCM, Upper trap.: nl XII: Tongue: nl MOTOR / NEUROMUSCULAR Bulk: nl Tone: nl Strength: nl lower extremities and left upper extremity; right pronator drift and positive satellite sign Rapid alternating movements: Impaired right hand Fine motor movements: Impaired right hand Abnormal / involuntary movements: none CEREBELLAR / COORDINATION: intact SENSATION: intact to light touch DTR's symmetrically hypoactive PLANTARS: flexor GAIT: Not tested Last 48 Hours of Lab Results: Laboratory Tests 01/01 06 Chemistry Sodium (137 - 145 mmol/L) 143 Potassium (3.5 - 5.1 mmol/L) 3.6 Chloride (98 - 107 mmol/L) 110 H Carbon Dioxide (22 - 30 mmol/L) 22 Anion Gap (5 - 16) 11 BUN (7 - 17 mg/dL) 17 Creatinine (0.5 - 1.0 mg/dL) 0.6 Estimated GFR (>60 ml/min) > 60 BUN/Creatinine Ratio (7 - 25 %) 28.3 H Hematology CBC w Diff NO MAN DIFF REQ WBC (4.8 - 10.8 /CUMM) 5.6 RBC (4.20 - 5.40 /CUMM) 4.48 Hgb (12.0 - 16.0 G/DL) 14.1 Hct (37 - 47 %) 41.9 MCV (81.0 - 99.0 FL) 93.6 MCH (27.0 - 31.0 PG) 31.4 H MCHC (33.0 - 37.0 G/DL) 33.5 RDW (11.5 - 14.5 %) 14.0 Plt Count (130 - 400 /CUMM) 220 MPV (7.4 - 10.4 FL) 9.0 Gran % (42.2 - 75.2 %) 54.7 Lymphocytes % (20.5 - 51.1 %) 23.8 Monocytes % (1.7 - 9.3 %) 19.0 H Eosinophils % (0 - 5 %) 2.1 Basophils % (0.0 - 2.0 %) 0.4 Absolute Granulocytes (1.4 - 6.5 /CUMM) 3.0 Absolute Lymphocytes (1.2 - 3.4 /CUMM) 1.3 Absolute Monocytes (0.10 - 0.60 /CUMM) 1.1 H Absolute Eosinophils (0.0 - 0.7 /CUMM) 0.1 Absolute Basophils (0.0 - 0.2 /CUMM) 0 12/31 0916 Chemistry Sodium (137 - 145 mmol/L) 141 Potassium (3.5 - 5.1 mmol/L) 3.5 Chloride (98 - 107 mmol/L) 106 Carbon Dioxide (22 - 30 mmol/L) 23 Anion Gap (5 - 16) 13 BUN (7 - 17 mg/dL) 14 Creatinine (0.5 - 1.0 mg/dL) 0.7 Estimated GFR (>60 ml/min) > 60 BUN/Creatinine Ratio (7 - 25 %) 20.0 Glucose (65 - 99 mg/dL) 116 H Hemoglobin A1c (4.2 - 5.8 %) 5.1 Calcium (8.4 - 10.2 mg/dL) 9.6 Total Bilirubin (0.2 - 1.3 mg/dL) 0.6 AST (14 - 36 U/L) 30 ALT (9 - 52 U/L) 36 Alkaline Phosphatase (<127 U/L) 95 Total Protein (6.3 - 8.2 g/dL) 7.4 Albumin (3.5 - 5.0 g/dL) 4.1 Globulin (1.9 - 4.2 gm/dL) 3.3 Albumin/Globulin Ratio (1.1 - 2.2 %) 1.2 Triglycerides (<150 mg/dL) 117 Cholesterol (<200 MG/DL) 199 LDL Cholesterol, Calc (65 - 129 mg/dL) 86 HDL Cholesterol (40 - 60 mg/dL) 90 H Cholesterol/HDL Ratio (0.00 - 4.23 %) 2 TSH &T3 &Free T4 Intrp (0.270 - 4.20 uIU/mL) 0.897 Coagulation PT (9.4 - 12.5 SEC) 11.5 INR (0.90 - 1.19) 1.05 APTT (25 - 37 SEC) 29 Hematology CBC w Diff NO MAN DIFF REQ WBC (4.8 - 10.8 /CUMM) 9.4 RBC (4.20 - 5.40 /CUMM) 4.96 Hgb (12.0 - 16.0 G/DL) 15.7 Hct (37 - 47 %) 46.4 MCV (81.0 - 99.0 FL) 93.6 MCH (27.0 - 31.0 PG) 31.7 H MCHC (33.0 - 37.0 G/DL) 33.8 RDW (11.5 - 14.5 %) 13.6 Plt Count (130 - 400 /CUMM) 227 MPV (7.4 - 10.4 FL) 8.6 Gran % (42.2 - 75.2 %) 81.2 H Lymphocytes % (20.5 - 51.1 %) 8.6 L Monocytes % (1.7 - 9.3 %) 9.0 Eosinophils % (0 - 5 %) 0.4 Basophils % (0.0 - 2.0 %) 0.8 Absolute Granulocytes (1.4 - 6.5 /CUMM) 7.6 H Absolute Lymphocytes (1.2 - 3.4 /CUMM) 0.8 L Absolute Monocytes (0.10 - 0.60 /CUMM) 0.8 H Absolute Eosinophils (0.0 - 0.7 /CUMM) 0 Absolute Basophils (0.0 - 0.2 /CUMM) 0.1 Imaging/Other Studies: PATIENT: SHANITA APODACA PRESENT AGE: 77 PATIENT ACCOUNT NO: [id number] : 42 LOCATION: [facility] ORDERING PHYSICIAN: Nabil Lopes MD SERVICE DATE: 12/31/17 EXAM TYPE: MRI - MRI-HEAD W/O CAROLYN MR BRAIN WITHOUT CONTRAST CLINICAL INFORMATION: Right-sided weakness and slurred speech. Negative head CT. COMPARISON: Head CT performed earlier the same day. TECHNIQUE: MRI of the brain without contrast was obtained using routine sequences. FINDINGS: There is a small acute infarct within the left arango radiata extending into the posterior left putamen in the left MCA territory. There is susceptibility artifact in near these areas with no correlate on the prior CT study. This may reflect mineralization in these areas no a follow-up noncontrast head CT would be helpful in excluding any developing hemorrhage. There are mild T2 signal changes within the supratentorial white matter and central og, most likely mild chronic microangiopathy. Chronic lacunar infarcts within the cerebellar hemispheres bilaterally. There is no hydrocephalus, extra-axial surface collection, or herniation. The major flow voids at the skull base are preserved. The midline structures are normal. The cerebellar tonsils are normally positioned. The craniocervical junction is normal. Osseous marrow signal intensity is homogenous. The visualized soft tissues are unremarkable. IMPRESSION: - There is a small acute infarct within the left arango radiata extending into the posterior left putamen in the left MCA territory. There is susceptibility artifact in near these areas with no evidence of acute hemorrhage on the prior CT study. The areas of susceptibility artifact may reflect mineralization, however, a follow-up noncontrast head CT would be helpful in excluding any developing hemorrhage. - Mild chronic microangiopathy. Critical results discussed with Dr. Lopes at 2:00 PM on 12/31/2017. DICTATED BY: Nabil Eagle MD DATE/TIME DICTATED:12/31/171349 CLINICAL ASSOCIATE:CHEY DATE/TIME TRANSCRIBED:12/31/171349 CONFIDENTIAL, DO NOT COPY WITHOUT APPROPRIATE AUTHORIZATION. <Electronically signed in Other Vendor System> SIGNED BY: Nabil Eagle MD 12/31/17 8804 IMPRESSION: Distal left internal carotid artery peak systolic velocity is 132 cm/s, likely overestimated given that the vessel is tortuous in this location. In light of the patient's symptoms, a CTA of the neck could be obtained to assess for any significant stenosis. No significant stenosis involving the right internal carotid artery. DICTATED BY: Nabil Eagle MD DATE/TIME DICTATED:12/31/172157 Assessment/Plan Assessment: Recent left arango radiata ischemic stroke with dysarthria and impaired right hand dexterity/strength. Admits to intermittent antihypertensive medication nonadherence. Question of left ICA stenosis versus tortuosity. Recommendations: Await CTA results Obtain an echocardiogram Continue antiplatelet and statin therapy Blood pressure control Stroke education Outpatient Speech therapy Outpatient Occupational therapy Consult Acknowledgment - Thank you for your consult request.
--- NOTE | 2018-01-01 20:45 | CT SCAN REPORT ---
CT ANGIOGRAM NECK WITH CONTRAST CT ANGIOGRAM BRAIN WITH CONTRAST CLINICAL INFORMATION: Evaluate possible atherosclerotic stroke. Slurred speech with right-sided tingling and numbness. COMPARISON: Brain MRI 12/31/2017 and carotid ultrasound from the same day. TECHNIQUE: Test bolus sequences followed by intravenous administration 95 mL of Optiray 320. Helical imaging was performed in the axial plane from the thoracic inlet to the skull vertex. Delayed postcontrast imaging of the head was also performed. The data was processed at the sand technologist workstation for generation of MIP sequences. Angled MIPs and volume rendered reformatted images were also generated at an offline 3D workstation. Stenoses are assessed in accordance with NASCET criteria unless otherwise indicated. FINDINGS: BRAIN: Small acute infarct extending from the left carotid artery on into the posterior left putamen and the left MCA territory is again noted. Mild background chronic microangiopathy. There is no intracranial hemorrhage, hydrocephalus, extra-axial surface collection, midline shift, or other herniation pattern. Mota to white matter differentiation is diffusely maintained without evidence of an evolved acute territorial infarct. The basilar cisterns are preserved. No significant soft tissue abnormality. No acute osseous abnormality. The paranasal sinuses and the mastoid air cells are well-aerated. CERVICAL SOFT TISSUES AND LUNG APICES: Biapical pleural parenchymal scarring. Enlarged multinodular thyroid gland. Asymmetric heterogeneous enhancement involving the left palatine tonsil for which direct visual inspection is recommended to exclude a tonsillar mass lesion. There is an 8 mm calculus along the upper medial margin of the left subinsular gland which exhibits severe fatty atrophy. Multilevel cervical spondylosis. Rightward deviation of the nasal septum with a rightward directed nasal septal spur. NECK CTA: There is a classic 3 vessel configuration of the aortic arch. Proximal arch vessels are non-stenotic. The vertebral arteries are codominant. No significant ostial stenosis is visualized on either side. Both vertebral arteries are widely patent throughout their extracranial cervical course. Both common and internal carotid arteries are normal in course and caliber. No significant stenosis involving the internal carotid arteries. Previous mildly elevated velocities within the distal left internal carotid artery were presumably related to vessel tortuosity. BRAIN CTA: There is a moderate stenosis involving the left M1 MCA segment. No additional significant arterial stenoses and no acute arterial occlusions within the head or neck. A small 2 mm shallow aneurysm projects inferiorly from the left paraclinoid ICA segment. Small infundibulum at the hypoplastic left P-comm origin. Timing of the contrast bolus allows assessment of the major dural venous sinuses, which all opacify normally. IMPRESSION: - Small evolving acute infarct within the left arango radiata extending to the left putamen in the left MCA territory. No hemorrhagic transformation. - There is a moderate stenosis involving the left M1 MCA segment. No additional significant arterial stenoses and no acute arterial occlusions within the head or neck. - A small 2 mm shallow aneurysm projects inferiorly from the left paraclinoid ICA segment. - Asymmetric heterogeneous enhancement involving the left palatine tonsil for which direct visual inspection is recommended to exclude a tonsillar mass lesion. - There is an 8 mm calculus along the upper medial margin of the left subinsular gland which exhibits severe fatty atrophy. - Enlarged multinodular thyroid gland.
[2018-01-01 21:47] VITALS: BP 162/90
[2018-01-02 06:35] VITALS: BP 140/90
--- NOTE | 2018-01-02 07:04 | PN- Housestaff ---
Subjective Follow-up For: Stroke Complaints: no complaints Tele-Events Since Last Visit: Normal sinus rhythm with a heart rate of 80s Subjective: Patient seen and examined at bedside. No overnight events. Patient denies weakness, dizziness, chest pain, nausea, vomiting, abdominal pain. Review of Systems Constitutional: Reports: no symptoms. Objective Last 24 Hrs of Vital Signs/I&O Vital Signs Date Time Temp Pulse Resp B/P B/P Pulse O2 O2 Flow FiO2 Mean Ox Delivery Rate 01/02 1058 182/90 01/02 0635 97.6 78 18 140/90 96 Room Air 01/01 2147 97.9 76 20 162/90 94 Room Air 01/01 1630 Room Air 01/01 1514 97.8 82 20 184/90 97 Room Air Intake & Output 01/02 1600 01/02 0800 01/02 0000 Intake Total 300 400 350 Output Total Balance 300 400 350 Intake, Oral 300 400 350 Patient 117 lb Weight Weight Bed scale Measurement Method Physical Exam General Appearance: Alert, Oriented X3, Cooperative, No Acute Distress Cardiovascular: Normal S1, Normal S2, No Murmurs Lungs: Clear to Auscultation Abdomen: Soft, No Tenderness, No Hepatospenomegaly Neurological: Normal Speech, Strength at 5/5 X4 Ext, Normal Tone, Sensation Intact Extremities: No Cyanosis, No Edema, Normal Pulses Current Medications: Current Medications Sig/Carlita Start time Last Medication Dose Route Stop Time Status Admin Acetaminophen 650 MG Q6P PRN 12/31 1914 AC PO Alprazolam 0.25 MG TID PRN 12/31 1914 AC PO 01/07 1914 Amlodipine Besylate 5 MG DAILY 01/01 0900 AC 01/02 PO 1058 Atorvastatin Calcium 40 MG 1700 12/31 1914 AC 01/01 PO 202 Clopidogrel Bisulfate 75 MG DAILY 12/31 1914 AC 01/02 PO 0851 Diphenhydramine HCl 50 MG ONCE ONE 01/01 1915 DC 01/01 IV 01/01 Epinephrine 0.3 MG ONCE PRN 01/01 1945 AC IM Melatonin 5 MG AT BEDTIME 12/31 2100 AC 12/31 PO 205 Methylprednisolone 40 MG ONCE ONE 01/01 1915 DC 01/01 IV 01/01 Patient Medication 1 ED ONE ONE 01/01 1530 VT Teaching ED 01/01 1531 Last 24 Hrs of Lab/Bobby Results Last 24 Hrs of Labs/Mics: Laboratory Tests 01/02/18 0619: Anion Gap 10, Estimated GFR > 60, BUN/Creatinine Ratio 30.0 H, CBC w Diff NO MAN DIFF REQ, RBC 4.83, MCV 93.6, MCH 31.4 H, MCHC 33.5, RDW 13.6, MPV 9.5, Gran % 93.5 H, Lymphocytes % 5.4 L, Monocytes % 1.1 L, Eosinophils % 0, Basophils % 0, Absolute Granulocytes 9.3 H, Absolute Lymphocytes 0.5 L, Absolute Monocytes 0.1, Absolute Eosinophils 0, Absolute Basophils 0 Assessment/Plan Assessment: 77-year-old female with past medical history of hypertension, anxiety came to [facility] with complaints of slurring of speech and right weakness for the past 3 days. Assessment and plan 1. Stroke 2. Hypertension 3. Anxiety * Overall patient feels much better. She had CTA neck and head which showed moderate stenosis of left MCA with questionable palatine tonsil mass. Patient will follow-up with ENT surgeon, neurologist, primary care physician as outpatient. Problem List: 1. Stroke Pain Ratin Pain Location: none Pain Goal: Remain pain free Pain Plan: tylenol Tomorrow's Labs & Rationales: cbc,bep
[2018-01-02] MEDS ORDERED: PLAVIX75 M1 PO ×2 (07:57→10:54)
[2018-01-02] MEDS ORDERED: ATORVASTATIN CA40 M1 PO ×2 (07:57→10:54)
--- NOTE | 2018-01-02 08:05 | Patient Discharge Instructions ---
Discharge Instructions General Discharge Information You were seen/treated for: STROKE Watch for these problems: DIZZINESS, FALL, LOSS OF CONSCIOUSNESS, WEAKNESS GO TO NEAREST EMERGENCY ROOM Special Instructions: PLEASE FOLLOW UP WITH YOUR PRIMARY CARE PROVIDER/ENT/neurology/ENDOCRINOLOGY WITHIN 1-2 WEEKS OF DISCHARGE Diet Continue normal diet: Yes Activity Full Activity/No Limits: No Activity Self Limited: Yes Acute Coronary Syndrome Inclusion Criteria At DC or during hospital stay patient has or had the following: ACS DIAGNOSIS No Discharge Core Measures Meds if any: Prescribed or Continued at Discharge DEE/ARB if EF <40% No Meds if any: NOT Prescribed or Continued at Discharge Congestive Heart Failure Inclusion Criteria At DC or during hospital stay patient has or had the following: CHF DIAGNOSIS No Discharge Core Measures Meds if any: Prescribed or Continued at Discharge Meds if any: NOT Prescribed or Continued at Discharge Cerebrovascular accident Inclusion Criteria At DC or during hospital stay patient has or had the following: CVA/TIA Diagnosis Yes Discharge Core Measures Meds if any: Prescribed or Continued at Discharge Antithrombotic No Statin (required if LDL =>70) Yes Anticoagulant No Meds if any: NOT Prescribed or Continued at Discharge Venous thromboembolism Inclusion Criteria VTE Diagnosis No VTE Type NONE VTE Confirmed by (Test) NONE Discharge Core Measures - Per Current guidelines, there needs to be overlap - treatment for the first 5 days of Warfarin therapy. - If discharged on Warfarin prior to 5 days of - overlap therapy, the patient will need to be - assessed for post discharge needs including - *Post discharge parental anticoagulation - *Warfarin and/or parental anticoagulation education - *Follow up date to check INR post discharge At least 5 days overlap therapy as Inpatient No Meds if any: Prescribed or Continued at Discharge Note: Overlap Therapy is Warfarin and Anticoagulant Meds if any: NOT Prescribed or Continued at Discharge
[2018-01-02 08:09] LABS: ABSOLUTE BASOPHIL COUNT 0 /CUMM (0.0-0.2); ABSOLUTE EOSINOPHIL COUNT 0 /CUMM (0.0-0.7); ABSOLUTE GRANULOCYTE CT 9.3 /CUMM (1.4-6.5); ABSOLUTE LYMPH COUNT 0.5 /CUMM (1.2-3.4); ABSOLUTE MONOCYTE COUNT 0.1 /CUMM (0.10-0.60); BASOPHIL % 0 % (0.0-2.0); EOSINOPHIL % 0 % (0-5); MEAN CORPUSCULAR HGB CONC 33.5 G/DL (33.0-37.0)
[2018-01-02 08:41] LABS: HEMATOCRIT 45.2 % (37-47); MEAN CORPUSCULAR HGB 31.4 PG (27.0-31.0); MEAN CORPUSCULAR VOLUME 93.6 FL (81.0-99.0); MEAN PLATELET VOLUME 9.5 FL (7.4-10.4); PLATELET COUNT 240 /CUMM (130-400); RBC DISTRIBUTION WIDTH 13.6 % (11.5-14.5); RED BLOOD CELL CT 4.83 /CUMM (4.20-5.40)
[2018-01-02 09:09] LABS: GRANULOCYTE % 93.5 % (42.2-75.2)
--- NOTE | 2018-01-02 09:30 | ECHOCARDIOGRAM REPORT ---
SHANITA APODACA Age: 77 : 1940 Gender: F Exam Date: 01/01/2018 16:36 Exam Location: 1 [address] Ht (in): 64 Wt (lb): 125 BSA: 1.60 BP: 180 / 98 Ordering Physician: Garry Mtz MD Referring Physician: Garry Mtz MD Technologist: Dorota Ramires [facility] Room Number: [id number] Indications: TIA Rhythm: Sinus Technical Quality: Fair, Technically difficult study FINDINGS Left Ventricle Normal size left ventricle. No obvious regional wall motion abnormalities. Left ventricular wall thickness increased. Normal left ventricular ejection fraction estimated at 65-70%. Right Ventricle Right ventricle not well visualized, grossly normal. Right Atrium Normal right atrial size. Left Atrium Normal left atrial size. Mitral Valve Mitral valve thickened. Trace to mild mitral regurgitation. Aortic Valve Trileaflet aortic valve. Diffuse thickening (sclerosis) of the aortic valve cusps without reduced excursion. No aortic stenosis. No aortic regurgitation. Tricuspid Valve Tricuspid valve not well visualized, grossly normal. Trace tricuspid regurgitation. Pulmonic Valve Structurally normal pulmonic valve. Trace to mild pulmonic regurgitation. Pericardium Small pericardial effusion. Great Vessels Normal size aortic root and proximal ascending aorta. CONCLUSIONS 1. This was a technically difficult examination 2. Mild aortic sclerosis is present with no valvular stenosis or insufficiency. 3. Mitral leaflet thickening is present with minimal to mild mitral insufficiency 4. A very small pericardial effusion is present which is hemodynamically insignificant. 5. The left ventricular chamber size is normal with mild concentric hypertrophy and a normal ejection fraction. 6. Minimal to mild tricuspid and pulmonic insufficiency are present with no evidence of pulmonary hypertension. 7. There are no obvious embolic sources identified on this examination. Jarek Head M.D. (Electronically Signed) Final Date: 02 January 2018 09:29 MEASUREMENTS (Male / Female) Normal Values 2D ECHO LV Diastolic Diameter PLAX 3.4 cm 4.2 - 5.9 / 3.9 - 5.3 cm LV Systolic Diameter PLAX 1.6 cm 2.1 - 4.0 cm LV Fractional Shortening PLAX 52.9 % 25 - 46 % LV Ejection Fraction 2D Teich 84.9 % IVS Diastolic Thickness 1.3 cm LVPW Diastolic Thickness 1.3 cm LV Relative Wall Thickness 0.8 RV Internal Dim ED PLAX 2.5 cm 1.9 - 3.8 cm LVOT Diameter 2.0 cm Aortic Root Diameter 2.9 cm LA Systolic Diameter LX 2.3 cm 3.0 - 4.0 / 2.7 - 3.8 cm LA Volume 16.0 cm 18 - 58 / 22 - 52 cm Ascending Aorta Diameter 3.0 cm DOPPLER AV Peak Velocity 108.0 cm/s AV Peak Gradient 4.7 mmHg AV Mean Velocity 90.4 cm/s AV Mean Gradient 3.0 mmHg AV Velocity Time Integral 22.5 cm LVOT Peak Velocity 85.0 cm/s LVOT Peak Gradient 2.9 mmHg LVOT Mean Velocity 51.3 cm/s LVOT Mean Gradient 1.0 mmHg LVOT Velocity Time Integral 17.5 cm LVOT Stroke Volume 55.0 cm AV Area Cont Eq vti 2.4 cm AV Area Cont Eq pk 2.5 cm MV Peak Velocity 135.0 cm/s MV Peak Gradient 7.3 mmHg MV Mean Velocity 72.9 cm/s MV Mean Gradient 3.0 mmHg Mitral E Point Velocity 64.7 cm/s Mitral A Point Velocity 104.0 cm/s Mitral E to A Ratio 0.6 MV PHT Velocity 81.7 cm/s MV Deceleration Wilkinson 292.0 cm/s MV Pressure Half Time 83.9 ms MV Area PHT 2.6 cm MV Deceleration Time 335.0 ms TR Peak Velocity 82.5 cm/s TR Peak Gradient 2.7 mmHg Right Atrial Pressure 5.0 mmHg Pulmonary Artery Systolic Pressu 7.7 mmHg Right Ventricular Systolic Press 7.7 mmHg PV Peak Velocity 99.3 cm/s PV Peak Gradient 3.9 mmHg PV Mean Velocity 59.9 cm/s PV Mean Gradient 2.0 mmHg PV Velocity Time Integral 19.5 cm LV E' Lateral Velocity 5.9 cm/s Mitral E to LV E' Lateral Ratio 11.1 LV E' Septal Velocity 5.8 cm/s Mitral E to LV E' Septal Ratio 11.3
--- NOTE | 2018-01-02 10:09 | PN- Att Addend ---
Attending Addendum Attending Brief Note Patient looking and feeling better, blood pressure is better, no fever. No major changes on physical. Patient had her CAT scan with contrast with appropriate precautions taken because questionable dye allergy. Results were noted. Patient will be able to go home later on today to follow with endocrine for thyroid abnormality follow with ENT follow-up with her tonsils follow-up with neurology and myself, see the CMR Intake & Output 01/02 1600 01/02 0400 01/01 1600 01/01 0400 12/31 1600 12/31 0400 Intake Total 400 350 720 200 Output Total Balance 400 350 720 200 Intake, Oral 400 350 720 200 Patient 117 lb 116 lb 125 lb Weight Weight Bed scale Bed scale Reported by Patient Measurement Method Current Medications Sig/Carlita Start time Last Medication Dose Route Stop Time Status Admin Acetaminophen 650 MG Q6P PRN 12/31 1914 AC PO Alprazolam 0.25 MG TID PRN 12/31 1914 AC PO 01/07 1914 Amlodipine Besylate 5 MG DAILY 01/01 0900 AC 01/01 PO 0932 Atorvastatin Calcium 40 MG 1700 12/31 1914 AC 01/01 PO 2029 Clopidogrel Bisulfate 75 MG DAILY 12/31 191 AC 01/02 PO 0851 Diphenhydramine HCl 50 MG ONCE ONE 01/01 1915 DC 01/01 IV 01/01 Epinephrine 0.3 MG ONCE PRN 01/01 1945 AC IM Melatonin 5 MG AT BEDTIME 12/31 2100 AC 12/31 PO 205 Methylprednisolone 40 MG ONCE ONE 01/01 1915 DC 01/01 IV 01/01 Patient Medication 1 ED ONE ONE 01/01 1530 HI Teaching ED 01/01 1531 Laboratory Tests 01/02/18 0619: Anion Gap 10, Estimated GFR > 60, BUN/Creatinine Ratio 30.0 H, CBC w Diff NO MAN DIFF REQ, RBC 4.83, MCV 93.6, MCH 31.4 H, MCHC 33.5, RDW 13.6, MPV 9.5, Gran % 93.5 H, Lymphocytes % 5.4 L, Monocytes % 1.1 L, Eosinophils % 0, Basophils % 0, Absolute Granulocytes 9.3 H, Absolute Lymphocytes 0.5 L, Absolute Monocytes 0.1, Absolute Eosinophils 0, Absolute Basophils 0 01/01/18 0605: Anion Gap 11, Estimated GFR > 60, BUN/Creatinine Ratio 28.3 H, CBC w Diff NO MAN DIFF REQ, RBC 4.48, MCV 93.6, MCH 31.4 H, MCHC 33.5, RDW 14.0, MPV 9.0, Gran % 54.7, Lymphocytes % 23.8, Monocytes % 19.0 H, Eosinophils % 2.1, Basophils % 0.4, Absolute Granulocytes 3.0, Absolute Lymphocytes 1.3, Absolute Monocytes 1.1 H, Absolute Eosinophils 0.1, Absolute Basophils 0 12/31/17 0916: Anion Gap 13, Estimated GFR > 60, BUN/Creatinine Ratio 20.0, Glucose 116 H, Hemoglobin A1c 5.1, Calcium 9.6, Total Bilirubin 0.6, AST 30, ALT 36, Alkaline Phosphatase 95, Total Protein 7.4, Albumin 4.1, Globulin 3.3, Albumin/Globulin Ratio 1.2, Triglycerides 117, Cholesterol 199, LDL Cholesterol, Calc 86, HDL Cholesterol 90 H, Cholesterol/HDL Ratio 2, TSH &T3 &Free T4 Intrp 0.897, PT 11.5, INR 1.05, APTT 29, CBC w Diff NO MAN DIFF REQ, RBC 4.96, MCV 93.6, MCH 31.7 H, MCHC 33.8, RDW 13.6, MPV 8.6, Gran % 81.2 H, Lymphocytes % 8.6 L, Monocytes % 9.0, Eosinophils % 0.4, Basophils % 0.8, Absolute Granulocytes 7.6 H, Absolute Lymphocytes 0.8 L, Absolute Monocytes 0.8 H, Absolute Eosinophils 0, Absolute Basophils 0.1 Vital Signs Date Time Temp Pulse Resp B/P B/P Pulse O2 O2 Flow FiO2 Mean Ox Delivery Rate 01/02 0635 97.6 78 18 140/90 96 Room Air 01/01 2147 97.9 76 20 162/90 94 Room Air 01/01 1630 Room Air 01/01 1514 97.8 82 20 184/90 97 Room Air
[2018-01-02 10:58] VITALS: BP 182/90
--- NOTE | 2018-01-02 13:35 | PN- Housestaff ---
Subjective Follow-up For: CVA Acute on Chronic Anemia Subjective: patient denies any nausea, vomiting or pain today. Patient afebrile overnight. Review of Systems Constitutional: Reports: see HPI. Objective Last 24 Hrs of Vital Signs/I&O Vital Signs Date Time Temp Pulse Resp B/P B/P Pulse O2 O2 Flow FiO2 Mean Ox Delivery Rate 01/02 1058 182/90 01/02 0635 97.6 78 18 140/90 96 Room Air 01/01 2147 97.9 76 20 162/90 94 Room Air 01/01 1630 Room Air 01/01 1514 97.8 82 20 184/90 97 Room Air Intake & Output 01/02 1600 01/02 0800 01/02 0000 Intake Total 300 400 350 Output Total Balance 300 400 350 Intake, Oral 300 400 350 Patient 117 lb Weight Weight Bed scale Measurement Method Physical Exam General Appearance: Alert, Oriented X3, Cooperative HEENT: Atraumatic, PERRLA, EOMI Neck: Supple, No JVD Lymphatic: Cervical adenopathy present bilaterally; tender Cardiovascular: Regular Rate, Normal S1, Normal S2, Systolic mumrum Lungs: Clear to Auscultation, Normal Air Movement Abdomen: Normal Bowel Sounds, Soft, No Tenderness, No Hepatospenomegaly Assessment/Plan Assessment: 77 year old female with history of HTN, presented with one week history of neuroogical deficit and 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 Stroke Pain Ratin Pain Location: neck Pain Goal: Pain 4 or less Pain Plan: As per pain pathway Tomorrow's Labs & Rationales: CBC - anemia
== END 2018-01-02 13:10 | DRG 66 ==
LOC: ERH 08:45 → ERHI 17:20 → 1NO 17:20 → ENTRNSPT 19:20 → EDTRNSPTSTS 19:34 → EDTRNSPT 19:34 → 1NO 19:38 → EDTRNSPT 20:02 → CMPTRNSPT 20:09 → ENPENDDIS 01-02 10:41 → ENTRNSPT 01-02 13:00 → EDTRNSPT 01-02 13:08 → EDTRNSPTSTS 01-02 13:08 → 1NO 01-02 13:10 → CMPTRNSPT 01-02 13:21
PROVIDERS: Emergency Medicine; Student in an Organized Health Care Education/Training Program
DX: I63.512 Cerebral infarction due to unspecified occlusion or stenosis of left middle cerebral artery (principal); R47.1 Dysarthria and anarthria; I10 Essential (primary) hypertension; R29.701 NIHSS score 1; F41.9 Anxiety disorder, unspecified; G83.21 Monoplegia of upper limb affecting right dominant side; Z91.041 Radiographic dye allergy status; Z90.710 Acquired absence of both cervix and uterus; Z90.49 Acquired absence of other specified parts of digestive tract; Z82.3 Family history of stroke
CPT/HCPCS: 1NP; 70551; 36592; 82436; 93005; 93010; 93306; 97112-GO; 97116-GO; 97161-GP; 97165-GO; 97530-GO; J0171; J1200; J2920